=== PATIENT | female | born 1995 | race Caucasian/White ===

== ENCOUNTER → 2024-06-05 | Outpatient (CLI) | payer BC ==
[2024-06-05 10:50] LABS: URINE WBC 0 /hpf (0-3)
[2024-06-05 11:01] LABS: BASO # 0.02 K/mm3 (0.02-0.10); EOS # 0.11 K/mm3 (0.04-0.40); EOS % 2.6 % (1.0-5.0); HEMATOCRIT 42.9 % (37.0-47.0); HEMOGLOBIN 14.4 g/dL (12.5-16.0); LYMPH# 1.65 K/mm3 (1.50-4.00); MEAN CELL VOLUME 89 fl (78-100); MEAN CORPUSCULAR HEMOGLOBIN 30 pg (27-31); MEAN CORPUSCULAR HGB CONC 34 g/dL (33-37); MEAN PLATELET VOLUME 11.4 fl (7.4-10.4); MONO # 0.43 K/mm3 (0.20-0.80); NEU # 1.96 K/mm3 (1.40-6.50); PLATELET COUNT 175 K/mm3 (130-400); RED BLOOD COUNT 4.81 M/mm3 (4.10-5.30); RED CELL DISTRIBUTION WIDTH 12.5 % (11.5-14.5); WHITE BLOOD COUNT 4.2 K/mm3 (4.8-10.8)
[2024-06-05 11:15] LABS: ALBUMIN 4.8 g/dL (3.5-5.0)
[2024-06-05 11:16] LABS: CALCIUM 10.1 mg/dL (8.3-10.5)
[2024-06-05 11:17] LABS: TOTAL PROTEIN 8.2 g/dL (6.4-8.3)
[2024-06-05 11:19] LABS: PH-URINE 5.5 (5.0 - 8.0); TOTAL BILIRUBIN 0.6 mg/dL (0.2-1.2); URINE APPEARANCE CLEAR (CLEAR); URINE BILIRUBIN NEGATIVE (NEGATIVE); URINE BLOOD 2+ (NEGATIVE); URINE COLOR YELLOW (YELLOW); URINE GLUCOSE NEGATIVE (NEGATIVE); URINE KETONE NEGATIVE (NEGATIVE); URINE LEUKOCYTE ESTERASE NEGATIVE (NEGATIVE); URINE NITRATE NEGATIVE (NEGATIVE); URINE PROTEIN(semi-quant) NEGATIVE (NEGATIVE)
[2024-06-08 14:54] LABS: ANA SCREEN with REFLEX Negative (Negative)
== END ==
LOC: LAB 10:42
PROVIDERS: Nurse Practitioner
DX: R21 Rash and other nonspecific skin eruption (principal)